=== PATIENT | male | born 2000 | race Caucasian/White ===

== ENCOUNTER → 2018-07-06 | Outpatient (CLI) | payer OTHER ==
[~2018-07-06] MED LIST: FLU60SYR36 IM
[2018-07-06 14:41] LABS: PLATELET COUNT, AUTOMATED 274 K/uL (150-450)
== END ==
LOC: LAB 14:24
PROVIDERS: ATTEND Internal Medicine
DX: Z00.00 Encounter for general adult medical examination without abnormal findings (principal)
CPT/HCPCS: 36415; 81001; 82040; 82247; 82310; 82374; 82435; 82465; 82565; 82947; 83718; 84075; 84132; 84155; 84295; 84443; 84450; 84460; 84478; 84520; 85025

== ENCOUNTER → 2018-07-14 | Outpatient (CLI) | payer OTHER | LOC: LAB 15:51 | PROVIDERS: ATTEND Internal Medicine | DX: R79.89 Other specified abnormal findings of blood chemistry (principal) | CPT/HCPCS: 36415; 82310; 82374; 82435; 82565; 82610; 82947; 84132; 84295; 84520 ==

== ENCOUNTER → 2018-11-20 | Outpatient (CLI) | payer OTHER ==
[~2018-11-20] MED LIST changes: +OXYC-865 PO
--- NOTE | 2018-11-20 14:00 | RADIOLOGY IMAGING REPORT ---
FACILITY: [facility] [place] PATIENT NAME: Wellington Rowell : 2000 MR: [id number] V: [id number] EXAM DATE: ORDERING PHYSICIAN: HINA BLEVINS TECHNOLOGIST: Location: [facility] Patient: Wellington Rowell : 2000 Visit/Account:[id number] Date of Sevice: 11/20/2018 KNEE 3 VIEW RIGHT, FEMUR RIGHT History: Status post trauma. Right thigh contusion while snowboarding. Comparison study: None. Findings: Right femur: There is no fracture involving the right femur. The right hip is unremarkable . Right knee: There is no fracture, dislocation or joint effusion involving the right knee. IMPRESSION: Normal images of the right femur and right knee. Report Dictated By: Santiago Lara MD at 11/20/2018 1:55 PM Report E-Signed By: Santiago Lara MD at 11/20/2018 1:55 PM WSN:[id number]
--- NOTE | 2018-11-20 14:00 | RADIOLOGY IMAGING REPORT ---
FACILITY: [facility] PATIENT NAME: Wellington Rowell : 2000 MR: [id number] V: [id number] EXAM DATE: ORDERING PHYSICIAN: HINA BLEVINS TECHNOLOGIST: Location: [facility] Patient: Wellington Rowell : 2000 Visit/Account:[id number] Date of Sevice: 11/20/2018 KNEE 3 VIEW RIGHT, FEMUR RIGHT History: Status post trauma. Right thigh contusion while snowboarding. Comparison study: None. Findings: Right femur: There is no fracture involving the right femur. The right hip is unremarkable . Right knee: There is no fracture, dislocation or joint effusion involving the right knee. IMPRESSION: Normal images of the right femur and right knee. Report Dictated By: Santiago Lara MD at 11/20/2018 1:55 PM Report E-Signed By: Santiago Lara MD at 11/20/2018 1:55 PM WSN:[id number]
== END ==
LOC: LAB 13:20
PROVIDERS: ATTEND Internal Medicine
DX: S70.11XA Contusion of right thigh, initial encounter (principal); S80.01XA Contusion of right knee, initial encounter

== ENCOUNTER 2018-11-27 01:17 | Outpatient (RCR) | payer OTHER ==
--- NOTE | 2018-11-27 13:01 | RADIOLOGY IMAGING REPORT ---
FACILITY: [facility] PATIENT NAME: Wellington Rowell : 2000 MR: [id number] V: [id number] EXAM DATE: ORDERING PHYSICIAN: HINA BLEVINS TECHNOLOGIST: Location: [facility] [place] Patient: Wellington Rowell : 2000 Visit/Account:[id number] Date of Sevice: 11/27/2018 Exam type: XR ORBITS History: Pre-MRI screening Comparison: None. Findings: No radiopaque metallic foreign bodies project over the orbits IMPRESSION: 1. No radiopaque metallic foreign bodies project over the orbits Report Dictated By: Skyla Deleon MD at 11/27/2018 12:56 PM Report E-Signed By: Skyla Deleon MD at 11/27/2018 12:57 PM WSN:[id number]
--- NOTE | 2018-11-27 14:23 | RADIOLOGY IMAGING REPORT ---
FACILITY: [facility] PATIENT NAME: Wellington Rowell : 2000 MR: [id number] V: [id number] EXAM DATE: ORDERING PHYSICIAN: HINA BLEVINS TECHNOLOGIST: Location: [facility] Patient: Wellington Rowell : 2000 Visit/Account:[id number] Date of Sevice: 11/27/2018 MR KNEE RT W/O CONTRAST DATE: 11/27/2018 8:29 AM TECHNIQUE: Multisequence, multiplanar MR imaging was performed of the right knee without intravenous contrast INDICATION: Pain on the lateral side. Hit a tree while skiing. COMPARISON: Knee radiographs November 20, 2018 FINDINGS: MENISCI: The menisci are intact. There is a relatively large fluid gap at the posterior margin of the lateral meniscus on for example series 4 images 8 through 12. CRUCIATES AND COLLATERALS: Normal ACL and PCL. Normal MCL and lateral collateral ligament complex. ARTICULAR CARTILAGE AND OSSEOUS STRUCTURES: Small area of marrow edema at the anterior margin of the lateral tibial plateau but no discrete fract ure. Medial Compartment: No focal cartilage defect. Lateral Compartment: No focal cartilage defect. Patellofemoral Compartment: No focal cartilage defect. EXTENSOR MECHANISM: The quadriceps and patellar tendons are intact as are the patellar retinacula. MISCELLANEOUS: Moderate soft tissue edema at the posterior margin of the knee. There is also mild to moderate subcutaneous edema anteriorly. IMPRESSION: 1. Focal marrow edema in the anterior aspect of the lateral tibial plateau suggests a contusion. No d iscrete fracture. 2. Intact cruciate and collateral ligaments. 3. Prominent fluid gap between the posterior horn of the lateral meniscus and the capsule could repre sent a meniscocapsular injury/separation. However, a fluid-filled popliteus recess is potentially a m ore likely consideration given the lack of marrow edema and relatively smooth margins of the cleft. T here is no discrete tear within the substance of the meniscus. 4. Moderate soft tissue edema posterior to the knee and distal femur could represent a small capsular rent. Report Dictated By: Lola Hickey MD at 11/27/2018 2:07 PM Report E-Signed By: Lola Hickey MD at 11/27/2018 2:18 PM WSN:[id number]
[2018-11-27] MEDS ORDERED: OXYC-865 PO (17:02)
== END 2018-12-25 18:00 | disposition home or self-care (01) ==
LOC: MRI 01:17 → EDSTATUS 14:36 → MRI 12-25 18:00
PROVIDERS: ATTEND Internal Medicine
DX: Z13.89 Encounter for screening for other disorder (principal); M25.561 Pain in right knee; M25.461 Effusion, right knee
CPT/HCPCS: 70030